=== PATIENT | female | born 2005 | race Caucasian/White ===

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

== ENCOUNTER → 2023-05-11 | Outpatient (REF) | payer OTHER | LOC: M LAB REF 12:27 | PROVIDERS: ATTEND Physician Assistant | DX: R30.0 Dysuria (principal) ==

== ENCOUNTER → 2024-11-26 | Outpatient (REF) | payer OTHER ==
[~2024-11-26] MED LIST changes: +FLUO-365 PO; -FLUO20CA22 PO
[2024-11-26 13:05] LABS: ALT/SGPT 22 U/L (7.0-40); AST/SGOT 19 U/L (<34); CALCIUM LEVEL 9.8 MG/DL (8.5-10.1); CARBON DIOXIDE LEVEL 26 MMOL/L (20-31); CHLORIDE LEVEL 104 MMOL/L (98-107); CHOLESTEROL LEVEL 178 MG/DL (<200); CHOLESTEROL RISK RATIO 5.20 (<5); CREATININE FOR GFR 0.76 MG/DL (0.55-1.30); FREE T4 1.05 NG/DL (0.89-1.76); GLOMERULAR FILTRATION RATE > 90.0 (>60); LDL CHOLESTEROL 121.4 MG/DL (<100); NON-HDL-C 143.8 MG/DL; POTASSIUM SERUM 5.1 MMOL/L (3.5-5.1); SODIUM LEVEL 141 MMOL/L (136-145); TRIGLYCERIDES LEVEL 112 MG/DL (<150)
== END ==
LOC: M LAB REF 11:57
PROVIDERS: ATTEND Family Medicine Addiction Medicine
DX: R63.5 Abnormal weight gain (principal)